=== PATIENT | male | born 1940 | race Caucasian/White ===

== ENCOUNTER → 2018-01-01 | Outpatient (CLI) | payer OTHER ==
--- NOTE | 2018-01-01 10:50 | RAD ---
CT HEAD WO CONTRAST History: Blurred vision for one year, diabetes Comparison: None. Technique: Noncontrast CT imaging was performed of the head. Exposure: One or more of the following individualized dose reduction techniques were utilized for this examination: 1. Automated exposure control 2. Adjustment of the mA and/or kV according to patient size 3. Use of iterative reconstruction technique. Findings: No acute extra-axial or parenchymal hemorrhage is identified. There is no significant intra-axial mass effect, midline shift, or extra-axial fluid collection. The wynn-white differentiation of the major vascular territories is preserved. There is [id number] supratentorial involutional change, ventricular size proportionate to the sulcal spaces. There are some small foci of calcification on the right parietal and left frontal cortical surfaces without associated other edema or mass effect. The mastoid air cells and the visualized paranasal sinuses are mostly aerated, likely mucus retention cyst anterior right sphenoid sinus about 1 cm. No acute calvarial abnormality is identified. There is atherosclerotic calcification bilateral carotid siphons and left intradural vertebral artery. Impression: 1. No acute intracranial abnormality is identified. 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 Electronically signed by: Farooq Campo MD (01/01/2018 10:46 AM) [id number]
== END | disposition home or self-care (01) ==
LOC: CT 10:03
PROVIDERS: ATTEND Family Medicine
DX: S06.2X0A Diffuse traumatic brain injury without loss of consciousness, initial encounter (principal); H53.8 Other visual disturbances; G31.89 Other specified degenerative diseases of nervous system; E11.9 Type 2 diabetes mellitus without complications; X58.XXXA Exposure to other specified factors, initial encounter; Y93.89 Activity, other specified; Y92.89 Other specified places as the place of occurrence of the external cause; Y99.2 Volunteer activity
CPT/HCPCS: 70450

== ENCOUNTER → 2021-05-23 | Outpatient (CLI) | payer OTHER ==
--- NOTE | 2021-05-24 08:05 | KCIC ---
COMPLETE RENAL ULTRASOUND Indication: Decreased renal function. Comparison: None. Procedure: Transabdominal ultrasound images are obtained of the kidneys and bladder. Findings: The kidneys demonstrate normal cortical echotexture. Corticomedullary differentiation is preserved. T here is no hydronephrosis. The right kidney measures 9.4 cm. The left kidney measures 11.3 cm. The urinary bladder is without obvious wall thickening. Only one ureteral jet is seen. The calculated volume of the urinary bladder is 39 mL. IMPRESSION: No hydronephrosis. Electronically signed by: Philip Mejia MD (05/24/2021 8:02 AM) [id number]
== END ==
LOC: KCIC US 15:19
PROVIDERS: ATTEND Family Medicine
DX: N28.9 Disorder of kidney and ureter, unspecified (principal)
CPT/HCPCS: 76770